=== PATIENT | female | born 1985 | race African-American/Black ===

== ENCOUNTER 2016-08-04 05:58 | Observation (INO) ==
[2016-08-04] MEDS ORDERED: DIPH/TET/ACEL PERT BOOSTER VACCINE 0.5 ML VIAL IM ONE ×2 (06:21→06:37)
[2016-08-04] MEDS ORDERED: HYDROmorphone 2 MG/1 ML VIAL IV STA (06:21)
[2016-08-04] MEDS ORDERED: RABIES VIRUS VACCINE 1 ML/2.5 UNIT KIT IM ONE ×3 (06:21→07:59)
[2016-08-04] MEDS ORDERED: CLINDAMYCIN INJ 900 MG in PREMIX 1 EACH IV STA (06:21)
[2016-08-04] MEDS ORDERED: ONDANSETRON 4 MG/2 ML VIAL IV STA (06:21)
--- NOTE | 2016-08-04 06:27 | Emergency Department Note ---
Arrival - Arrival Chief Complaint: Animal Bite Stated Complaint: bit by a dog bleeding ED Nursing Triage Note: Pt to triage with complaints of being bitten by dog on . States that she is unaware of who the dog belongs to. Pt noted to have laceration to upper left ext. Pt has pressure applied at time of triage. Wound covered with 4X4 and wrapped with cobain. NO active bleeding at time of triage. + sensory motor function noted to ext and + pulse palpable. Pt is not up to date on tetanus. Mode of Arrival: Wheelchair Limitations: No Limitations Source: Patient Time Seen by Provider: 08/04/16 06:21 - History of Present Illness HPI Narrative: This 30-year-old black female presents approximately 30 minutes after being attacked and bitten by a stray animal unknown to her. The animal punctured the lateral left thigh and then a bit a large chunk out of her left calf. The patient has no other areas of injury but does complain obviously of significant amounts of discomfort. Bleeding was controlled with compression. Currently the patient although anxious is in no acute medical distress. Onset (ago): minute(s) (Patient presents 30 minutes post incident) Date of Last Menstrual Period: 2 months Allergies/Adverse Reactions: Allergies Allergy/AdvReac Type Severity Reaction Status Date / Time No Known Allergies Allergy Verified 08/04/16 06:06 Home Medications: Home Medications Medication Instructions Recorded Confirmed Type No Known Home Medications [No 08/04/16 08/04/16 History Known Home Medications] Review of System - Review of System 12 point system: reviewed and no additional remarkable complaints except as stated - Review of System Constitutional: Present: as per HPI Skin: Present: as per HPI Medical,Surgical,& Family Hx - Social History Smoking Status: Current every day smoker Frequency of Alcohol Use: None Type of Drug Use: Marijuana Exam Physical Examination: GENERAL: Well developed, well nourished black female in no acute distress. HEENT: Normocephalic. No trauma. Moist mucous membranes. EOMI. PERRLA. ENT NML NECK: Supple. No adenopathy. CARDIAC: Regular. No murmurs. Heart rate 120 CHEST: Clear to auscultation. No respiratory distress. O2 sat 98% ABDOMEN: Soft. Nontender. Active bowel sounds. EXTREMITIES: No trauma. Normal ROM. No pedal edema. SKIN: No diaphoresis. No rash. 4 inch diameter junk of tissue removed from the left calf down to the muscular sheath. NEURO: Alert. Neuro intact no focal deficits. Vital Signs: Vital Signs Temperature 99.5 F 08/04/16 06:07 Pulse Rate 122 H 08/04/16 06:07 Respiratory Rate 20 08/04/16 06:07 Blood Pressure 106/69 08/04/16 06:07 O2 Sat by Pulse Oximetry 98 08/04/16 06:07 Course - Reevaluation(s) Reevaluation #1: Discussed with patient the size of the wound would need surgical care and to this and she will be admitted. Reevaluation #2: Patient is on testing. I discussed the situation with her and the current recommendations for rabies vaccine in this instance which states there is no contraindication including as declared in the package insert. After discussion the patient agreed that she would take the vaccine as there is practically no possibility of locating this feral dog. - Consultations Consultation #1: Discussed with Dr. Shaffer who will admit the patient for further evaluation and treatment Results - Labs CBC & BMP: 08/04/16 06:58 08/04/16 06:58 Labs: I reviewed the laboratory noted the elevated white blood cell count Disposition Clinical Impression: Dog bite of left calf, Case discussed with: patient, patient's family Condition: Stable Time of Disposition: 07:44
[2016-08-04] MEDS ORDERED: CLINDAMYCIN INJ 50 ML IV ONE (06:35)
[2016-08-04] MEDS ORDERED: ONDANSETRON 4 MG/2 ML VIAL ONE (06:35)
[2016-08-04] MEDS ORDERED: HYDROmorphone 2 MG/1 ML VIAL ONE (06:36)
[2016-08-04 07:15] LABS: Basophils % 0.3 % (0.0-0.8); Eosinophils # 0.2 10*3/uL (0.0-0.87); Eosinophils % 1.6 % (0.00-10.9); Hematocrit 33.3 VOL% (35.7-47.0); Hemoglobin 11.1 GM/DL (12.0-16.0); Immature Granulocytes % 0.4 %; Immature Granulocytes Absolute 0.06 #; Lymphocytes # 2.9 10*3/uL (1.4-4.0); Lymphocytes % 19.4 % (21.3-54.2); Mean Corpuscular HGB Conc 33.3 GM/DL (32-36); Mean Corpuscular Hemoglobin 26 PG (27-34); Mean Corpuscular Volume 78.7 FL (87-102); Mean Platelet Volume 11.4 FL (9.6-12.0); Monocytes # 0.8 10*3/uL (0.11-0.8); Monocytes % 5.5 % (1.7-12.7); Neutrophils # 10.7 10*3/uL (1.4-7.4); Neutrophils % 72.8 % (38.7-73.9); Platelet Count 234 T/CUMM (130-400); Red Blood Count 4.23 MC/CUMM (3.8-5.5); Red Cell Distribution Width 15.7 % (9.3-17.3); White Blood Count 14.7 T/CUMM (4-12)
[2016-08-04] MEDS ORDERED: ONDANSETRON 4 MG/2 ML VIAL IV PRN (07:29)
[2016-08-04] MEDS ORDERED: LACTATED RINGERS 1,000 ML IV SCH (07:30)
[2016-08-04 07:39] LABS: Alanine Aminotransferase 9 U/L (13-56); Albumin 3.2 G/DL (3.4-5.0); Alkaline Phosphatase 88 U/L (45-117); Aspartate Amino Transferase 14 U/L (0-37); Bilirubin,Total < 0.39 MG/DL (0.2-1.0); Blood Urea Nitrogen 9 MG/DL (7-18); Calcium 8.6 MG/DL (8.5-10.1); Glucose 98 MG/DL (74-106); Osmolality,Calculated 271.8 MOS/KG (273-304); Potassium 3.9 MMOL/L (3.5-5.1); Sodium 137 MMOL/L (136-145)
[2016-08-04] MEDS: CLINDAMYCIN INJ 900 MG in PREMIX 1 EACH IV SCH ×2 (09:25→15:24)
[2016-08-04] MEDS: HYDROmorphone 2 MG/1 ML VIAL IV PRN ×2 (10:28→14:22)
--- NOTE | 2016-08-04 11:16 | General Surg History&Physical ---
Assessment and Plan (1) Dog bite of left calf Status: Acute Assessment and plan: Impression: Dog bite Plan: Patient cannot tolerate manipulation at bedside and repair of laceration. We will plan for this in the operating room with washout of the wound. I discussed the procedure has performed and the anticipated recovery. The risk of the procedure including bleeding, infection, damage to surrounding structures , need for further surgery, possibility of an open wound were all discussed in detail and she would like to proceed. Current Visit: Yes History of Present Illness Chief complaint: Bitten by dog History of present illness: Ms. Florence is a 30 year old female was bitten by a pit bull on her calf. This is resulted in a complex laceration of the left calf with smaller adjacent lacerations. There is no active bleeding. Patient is but did not know this until urine test came back. She has refused rabies vaccination. Home Medications Medication Instructions Recorded Confirmed Type No Known Home Medications [No 08/04/16 08/04/16 History Known Home Medications] Allergies Allergy/AdvReac Type Severity Reaction Status Date / Time No Known Allergies Allergy Verified 08/04/16 06:06 Medical,Surgical,& Family Hx - Medical History Medical History: noncontributory - Social History Smoking Status: Current every day smoker Frequency of Alcohol Use: None Type of Drug Use: Marijuana Exam - Constitutional Vitals: Period Temp Pulse Resp BP Sys/Yee Pulse Ox Last 24 Hr 98-98 20-20 100-105/68-72 100-100 General appearance: no acute distress - Head Head exam: Present: normocephalic - ENT Mouth exam: Present: normal external inspection - Neck Neck exam: Present: normal inspection - Respiratory Respiratory exam: Present: clear to auscultation bilaterally - Cardiovascular Cardiovascular exam: Present: RRR - GI/Abdominal GI/Abdominal exam: Present: soft - Extremities Exam Extremities exam: Present: other (Complex laceration of the left calf. Smaller lacerations adjacent this area. Very tender. No erythema. Motor and sensory and vascular exam are all normal. Injury appears to be limited to soft tissue and scan.) - Back Exam Back exam: Present: normal inspection - Neurological Exam Neurological exam: Present: alert, oriented X3 Speech: Present: normal - Skin Skin exam: Present: normal color 12 point system: reviewed and no additional remarkable complaints except as stated Results - Labs CBC & BMP: 08/04/16 06:58 05/13/17 06:58 Lab Results: I have reviewed the past 24 hour labs
[2016-08-04] MEDS ORDERED: LIDOCAINE 1%/EPI INJ 20 ML VIAL ONE ×2 (12:00→13:09)
[2016-08-04] MEDS ORDERED: PROPOFOL 200 MG/20 ML VIAL IV ONE (12:18)
--- NOTE | 2016-08-04 13:33 | Operative Note ---
Date of procedure: 08/04/16 Pre-op diagnosis: Dog bite resulting in lacerations left calf Post-op diagnosis: same Procedure: Procedure performed: #1 repair of complex laceration of the left calf of 9.5 cm. #2 repair of second laceration of 2 cm left calf. #3 repair of third laceration of 3 cm left calf. Procedure in detail: After informed consent was obtained the patient was taken operating suite. Attempts at spinal were unsuccessful. Patient was laid on her right side. Monitored anesthesia initiated. Left lower extremity was prepped and draped in usual sterile fashion. After procedural pause local anesthetic infiltrated in the skin and subcutaneous tissue around all of the lacerations. The wound was then irrigated and suctioned. There was excellent hemostasis. I then undermined the soft tissue away from the belly of the gastrocnemius muscle in the area of the complex laceration to facilitate tissue closure. Laceration was able to be repaired. This was done with adrienne. The 2 smaller lacerations were also repaired. There was a bridge scan between this 2 cm and the complex laceration but it appeared viable at the time of the procedure. Removal of this would have created a defect to large to facilitate closure. There was excellent hemostasis throughout the procedure. Dressings applied and the patient was taken recovery room in stable condition. All lap and needle counts correct at the end of the case. Plan for discharge home later today when anesthesia wears off. Wound care instructions were given to the patient's family. She will follow-up with me in 1 week. Instructed to call sooner for any redness persistent drainage any sign of infection, fever, or any other concern. Anesthesia: MAC, local Surgeon / Physician: Adrián Romero Estimated blood loss: other (Less than 10 cc) Specimens: none sent Condition: stable Disposition: PACU Results - Labs CBC & BMP: 08/04/16 06:58 08/04/16 06:58 Discharge Plan - Discharge Medications No Action No Known Home Medications [No Known Home Medications] - Follow Up or Referral - Forms/Instructions
--- NOTE | 2016-08-04 13:37 | Discharge Summary ---
Hospital Course - Hospital Course Hospital Course: Patient admitted to [facility] after dog bite resulted in laceration of the left thigh. She underwent repair in the operating room. Should be discharged today after she recovers from anesthesia. Wound care instructions being given. She was also found to be . Instructed to follow-up with the program coordinator of her choice. I will see her in 1 week. Diagnosis - Discharge Diagnosis (1) Dog bite of left calf Status: Acute Discharge Plan - Discharge Medications No Action No Known Home Medications [No Known Home Medications] - Follow Up or Referral - Forms/Instructions Exam - Constitutional Vitals: Period Temp Pulse Resp BP Sys/Yee Pulse Ox Last 24 Hr 98.5 F 93-98 19-20 98-105/43-72 96-100 DS: Provider Date of admission: 08/04/16 07:28 Primary care physician: . No PCP Attending physician on admission: Adrián Romero MD Consults: 08/04/16 07:29 Consult to Wound Care - [place] [CONS] Routine Reason for Wound Care: Wound Care Management Discharging clinician: Adrián Romero MD
--- NOTE | 2016-08-04 13:38 | Anesthesia Post-Op ---
Anesthesia Post OP - Post Ansesthetic Evaluation Patient seen in post op: Yes Resp: within normal limits CV: within normal limits Mental: within normal limits Temp: within normal limits Otrd-[id number]-Pskwtyeil: within normal limits Nausea and Vomiting: within normal limits Pain: within normal limits
[2016-08-04] MEDS ORDERED: fentaNYL 100 MCG/2 ML VIAL ONE (13:41)
[2016-08-04 15:46] VITALS: BP 103/64
== END 2016-08-04 15:45 | disposition home or self-care (01) ==
LOC: N.ED 05:58 → INTOOBSV 07:28 → N.EDINP 07:28 → N.3E 08:53
PROVIDERS: ADMIT Surgery; ATTEND Surgery